=== PATIENT | female | born 1975 | race Caucasian/White ===

== ENCOUNTER 2022-08-27 01:30 | Day surgery (SDC) | payer BC, SELFPAY ==
[2022-08-25 12:30] VITALS: BMI 38.7
--- NOTE | 2022-08-25 12:36 | PC.NURSE ---
Report to the Outpatient Waiting Room, entrance under the green pavilion located off [facility], at time 0830 on date 08/27/22. OR Time: 1030. Time changes happen often and if your time is changed the preop area will call you the afternoon before. - You and your visitor will be asked to self-screen and do not enter if you have any COVID symptoms. - Only one visitor and NO children visitors are allowed at this time. - The patient visitor is requested to leave or wait in car when not with patient due to restrictions. - A mask is required within the hospital. Patients may have clear liquids (water, carbonated beverages, clear teas, apple juice) until 3 hours prior to surgery with a maximum of 20 ounces. - No food from midnight until time of surgery Take the following medications with a SIP of water the morning of surgery: N/A Medications to discontinue per physician: N/A Date to take last dose: N/A Please no make-up, nail nepali, hairspray, perfume, deodorant, or body powder the day of surgery. No jewelry (including any body piercings) or valuables the day of surgery, leave them at home. Please take a shower or bath the night before, or the morning of, surgery with an antibacterial soap. Wear comfortable, loose fitting clothing. - Jewelry must be removed prior to entering the operating room. Rings and piercings that are not removed may be cut off. - The hospital will not accept responsibility for valuables. - Please leave all valuables, including medications, at home the day of surgery. If you are going home after surgery, a licensed clark driver must drive you home. - NO public transportation without another adult. - We recommend that an adult stay with you for 24 hours following discharge. - We also recommend that you do not drive, make important decision, drink alcoholic beverages, or take any drugs that were not prescribed by your health care provider for at least 24 hours after your discharge time. Follow any additional instructions given to you from your surgeon. If you or anyone in your household have experienced Covid symptoms in the past week, please notify your surgeon or the nurse liaison at the phone number below for possible testing. Telephone instructions given to PT - RITA RUSS and asked if any additional questions and then verbalized understanding. Patient advised to call surgeon office or pre surgery nurse liaison [phone] if any additional questions.
--- NOTE | 2022-08-27 07:37 | WPDHPUPDATE1 ---
History and Physical Update Update Date/Time: 08/27/22 07:37 History and Physical has been reviewed, including an updated exam of the patient. There are NO changes in the patient's condition. See office note of 2 weeks ago for indications for procedure. We will be proceeding with hysteroscopic exam, dilation and curettage for a tissue sample, and endometrial ablation. Risks, benefits, and alternatives have been discussed and questions answered. Patient agrees to proceed with procedure.
[2022-08-27] MEDS: LACTATED RINGERS 1,000 ML 30 ML IV CONT (09:15)
[2022-08-27] MEDS: ACETAMINOPHEN 500 MG TABLET 1000 MG PO (09:15)
--- NOTE | 2022-08-27 09:28 | WPDANESEPPF ---
Anes - Initial Pre Proc Eval Procedure: Operation Date: 08/27/22 10:30 Proposed Procedures p Hysteroscopy, Dilation and Curettage, Kortney Endometrial Ablation - Luke Tanner MD Date/Time: 08/27/22 09:28 Surgeon: Luke Tanner MD Pre Op Diagnosis: menometrorrhagia Patient Data Age: 46 Gender: F Height: 1.68 m Weight: 108.86 kg Allergies Allergy/AdvReac Type Severity Reaction Status Date / Time No Known Allergies Allergy Verified 08/25/22 12:30 Home Medications Medication Instructions Recorded Confirmed Type No Home Medications 08/12/22 08/25/22 History Patient hx anesthesia problems: post op nausea/vomiting Family hx anesthesia problems: none Results Review: All pre-operative results and documents have been reviewed as part of the pre-operative evaluation. [facility] Past Medical History Medical History Hypertension no meds Screening mammogram, encounter for Surgical History Surgical History H/O tubal ligation (~2005) History of orthopedic surgery (~1998) right foot broken Family History Family History Father Hypertension Heart disease Grandparent Cerebrovascular accident, Onset Age: 80 paternal grandfather Social History Social History Smoking status: Never smoker Alcohol intake: never Substance use: never Substance use type: does not use Living arrangements: with family Additional living arrangements comments: Engaged 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 Gender identity (if verbalized by the patient): Female Sexual Orientation (if Verbalized by the Patient): Straight or Heterosexual Spiritual care concerns: No Anes - Eval Final PreProcedure Day of Procedure 08/27/22 09:28 Patient weight: obese Heart: regular rate and rhythm Lungs: clear to auscultation Airway: Mallampati scale class II Neurological: alert and oriented Last oral intake: >/= 8 hours ASA classification: II Emergent: no Anesthetic plan: proceed Anesthesia type and monitoring: general GIVS and standard monitoring Results Review: All pre-operative results and documents have been reviewed as part of the pre-operative evaluation. Informed Consent: The patient's anesthetic plan and its attendant risks and benefits were discussed with the patient/family/POA. Questions were solicited and answers provided to the satisfaction of the patient/family/POA.
[2022-08-27 09:37] VITALS: BP 181/83; PULSE 79; RESP 14; TEMP 36.4; O2SAT 100
--- NOTE | 2022-08-27 11:00 | W.PM.PROC2 ---
Procedure Note - Detailed Date of Procedure 08/27/22 Pre-op Diagnosis menometrorrhagia Post-op Diagnosis Same Procedure Performed 1. Hysteroscopy with uterine curettings 2. Endometrial ablation Surgeon Luke Tanner MD Anesthesia MAC Findings Enlarged uterus with thickened endometrial cavity Description of Procedure Patient was prepped and draped in the usual manner for this procedure. Cervix was dilated to allow the hysteroscope replaced, which did reveal slightly thickened endometrial cavity but no specific endometrial abnormalities. Curettings were obtained. Endometrial ablation instrument was placed, cavity assessment performed, instrument activated. At the end of the cycle hysteroscopic exam revealed good destruction throughout. Patient was sent to recovery room in stable condition. Estimated Blood Loss 25 Drains No Packing No Pathology Yes Complications No immediate complications Condition Stable Disposition PACU [facility] Billing Surgery - Charge Forward: Surgery Billing
[2022-08-27 11:04] VITALS: BP 153/84; PULSE 98; RESP 14; O2SAT 98
[2022-08-27 11:30] VITALS: BP 153/88; PULSE 64; RESP 14; O2SAT 100
[2022-08-27 12:00] VITALS: BP 164/82; PULSE 75; RESP 14
== END 2022-08-27 12:09 | disposition home or self-care (01) ==
PROVIDERS: PCP Physician Assistant; Visit Provider Obstetrics & Gynecology
PROC: 0U5B8ZZ Destruction of Endometrium, Via Natural or Artificial Opening Endoscopic (ICD-10-PCS; CPT 58563; principal; 2022-08-27 10:30)
DX: N92.1 Excessive and frequent menstruation with irregular cycle (principal); E66.9 Obesity, unspecified; Z68.41 Body mass index [BMI] 40.0-44.9, adult
CPT/HCPCS: 58563; 88305; A9270; J1885; J2250; J2704; J3010; J7030; J7120

== ENCOUNTER 2023-02-08 13:00 | Outpatient (CLI) | payer BC, SELFPAY ==
[2023-02-08 13:48] LABS: Hematocrit 39.6 % (37.0-47.0); Mean Corpuscular HGB Conc 32.8 g/dl (32-36); Mean Corpuscular Hemoglobin 28.4 pg (26-34); Mean Corpuscular Volume 86.5 fl (80-100); Platelet Count Result 255 k/mm3 (150-375); Red Blood Count 4.58 M/mm3 (4.2-5.4); Red Cell Distribution Width 14.9 % (11.5-14.5); White Blood Count 6.9 K/mm3 (4.5-10.0)
== END 2023-02-08 13:01 | disposition home or self-care (01) ==
LOC: ANHSURGERY 13:07
PROVIDERS: Anesthesiology; PCP Physician Assistant; Visit Provider Obstetrics & Gynecology
DX: N92.1 Excessive and frequent menstruation with irregular cycle (principal); N99.85 Post endometrial ablation syndrome; Z01.818 Encounter for other preprocedural examination
CPT/HCPCS: 36415; 85027; 86850; 86900; 86901

== ENCOUNTER 2023-02-11 00:30 | Day surgery (SDC) | payer BC, SELFPAY ==
[2023-01-28 13:36] VITALS: BMI 37.7
--- NOTE | 2023-01-28 14:00 | PC.NURSE ---
Report to the Outpatient Waiting Room, entrance under the green pavilion located off [facility], at time _0730_ on date _02/11/23_. Planned Procedure Time: _0930 . Time changes happen often and if your time is changed the preop area will call you the afternoon before. - You and your visitor will be asked to self-screen and do not enter if you have any COVID symptoms. - Only one visitor is requested with a max of two and NO children visitors are allowed at this time. - The patient visitor may be requested to leave or wait in car when not with patient due to distancing restrictions. - A mask is optional within the hospital at this time. Patients may have clear liquids (water, carbonated beverages, clear teas, apple juice) until 3 hours prior to surgery(0630) with a maximum of 20 ounces. - No food from midnight until time of surgery - Take the following medications with a SIP of water the morning of surgery: _TAKE NO MEDS THE MORNING OF YOUR SURGERY DO NOT STOP ANY OF YOUR OTHER PRESCRIPTION MEDICATIONS PRIOR TO SURGERY ?EXCEPT THE FOLLOWING Medications to discontinue per physician __NONE_-CONTINUE YOUR VITAMIN AND PROGESTERONE AND IRON TO MANAGE SEVERE ANEMIA UP UNTIL THE DAY BEFORE YOUR SURGERY Date to take last dose___NONE Please no make-up, nail cymraes, hairspray, perfume, deodorant, or body powder the day of surgery. No jewelry (including any body piercings) or valuables the day of surgery, leave them at home. Please take a shower or bath the night before, or the morning of, surgery with an antibacterial soap. Wear comfortable, loose fitting clothing. Children are encouraged to wear pajamas. - Jewelry must be removed prior to entering the operating room. Rings and piercings that are not removed may be cut off. - The hospital will not accept responsibility for valuables. - Please leave all valuables, including medications, at home the day of surgery. If you are going home after surgery, a licensed refrigerated national truck driver must drive you home. - NO public transportation without another adult if you receive anesthesia. - We recommend that an adult stay with you for 24 hours following discharge. - We also recommend that you do not drive, make important decision, drink alcoholic beverages, or take any drugs that were not prescribed by your health care provider for at least 24 hours after your discharge time. Follow any additional instructions given to you from your surgeon. If you or anyone in your household have experienced Covid symptoms in the past week, please notify your surgeon or the nurse liaison at the phone number below for possible testing. Telephone instructions given to __DENA__and asked if any additional questions and then verbalized understanding. Patient advised to call surgeon office or pre surgery nurse liaison [phone] if any additional questions.
[2023-02-11] VITALS (9 sets, daily range): BP systolic 145–177; BP diastolic 65–91; PULSE 57–71; RESP 12–18; TEMP 36.6–37.3; O2SAT 96–100
[2023-02-11] MEDS: ACETAMINOPHEN 500 MG TABLET 1000 MG PO (06:31)
[2023-02-11] MEDS: SCOPOLAMINE 1.5 MG PATCH TRANSDERM (06:31)
[2023-02-11] MEDS: KETOROLAC 15 MG/ML VIAL (*BKC) IV PUSH (06:31)
--- NOTE | 2023-02-11 06:35 | WPDANESEPPF ---
Anes - Initial Pre Proc Eval Procedure: Operation Date: 02/11/23 07:30 Proposed Procedures p Robotic Assisted Total Laparoscopic Hysterectomy, Bilateral Salpingectomy - Luke Tanner MD Date/Time: 02/11/23 06:35 Surgeon: Luke Tanner MD Pre Op Diagnosis: abnormal uterine bleeding Patient Data Age: 47 Gender: F Height: 1.68 m Weight: 106 kg Allergies Allergy/AdvReac Type Severity Reaction Status Date / Time No Known Allergies Allergy Verified 01/28/23 13:56 Home Medications Medication Instructions Recorded Confirmed Type progesterone micronized 200 mg 200 mg PO QHS 30 days #30 caps 01/25/23 02/03/23 Rx capsule (Prometrium) ferrous sulfate 325 mg (65 mg 325 mg PO DAILY 01/28/23 02/03/23 History iron) tablet mv-mn no.97-folic 180 mcg-dha 25 1 tablet PO DAILY 01/28/23 02/03/23 History mg-herb no.293 25 mg chewable tablet (Alive Daily Support ) Patient hx anesthesia problems: post op nausea/vomiting Family hx anesthesia problems: none Results Review: All pre-operative results and documents have been reviewed as part of the pre-operative evaluation. [facility] Past Medical History Medical History Anemia Breast asymmetry Hypertension no meds Screening mammogram, encounter for Surgical History Surgical History H/O tubal ligation (~2005) History of hysteroscopy (08/27/22) hscops D&C/ endometrial ablation History of orthopedic surgery (~1998) right foot broken Family History Family History Father Hypertension Heart disease Grandparent Cerebrovascular accident, Onset Age: 80 paternal grandfather Social History Social History Smoking status: Never smoker Alcohol intake: never Substance use: never Substance use type: does not use Living arrangements: with family Additional living arrangements comments: Engaged Occupation/Education: other 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 Gender identity (if verbalized by the patient): Female Sexual Orientation (if Verbalized by the Patient): Straight or Heterosexual Spiritual care concerns: No Anes - Eval Final PreProcedure Day of Procedure 02/11/23 06:35 Patient weight: obese Heart: regular rate and rhythm Lungs: clear to auscultation Airway: Mallampati scale class II Neurological: alert and oriented Last oral intake: >/= 8 hours ASA classification: II Emergent: no Anesthetic plan: proceed Anesthesia type and monitoring: general ETT and standard monitoring Results Review: All pre-operative results and documents have been reviewed as part of the pre-operative evaluation. Informed Consent: The patient's anesthetic plan and its attendant risks and benefits were discussed with the patient/family/POA. Questions were solicited and answers provided to the satisfaction of the patient/family/POA.
[2023-02-11] MEDS: LACTATED RINGERS 1,000 ML 30 ML IV CONT ×2 (06:53→09:15)
--- NOTE | 2023-02-11 07:19 | WPDHPUPDATE1 ---
History and Physical Update Update Date/Time: 02/11/23 07:19 History and Physical has been reviewed, including an updated exam of the patient. There are NO changes in the patient's condition. Risks, benefits, and alternatives have been discussed and questions answered. Patient agrees to proceed with procedure.
[2023-02-11] MEDS: ceFAZolin 2 GM/D5W 50 ML 2 GM/50 ML BAG IVPB (07:28)
--- NOTE | 2023-02-11 09:00 | W.PM.PROC2 ---
Procedure Note - Detailed Date of Procedure 02/11/23 Pre-op Diagnosis 1. 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 Enlarged uterus Post-op Diagnosis Same Procedure Performed 1. Robotic assisted total laparoscopic hysterectomy with bilateral salpingectomy/ovarian preservation Surgeon Luke Tanner MD Anesthesia General Findings 1. Enlarged globular uterus 2. Distal fallopian tube segments Description of Procedure Patient was prepped and draped in usual manner for this procedure. Attention was placed the vagina where instruments were placed for uterine mobility throughout the case. Abdominal trocar sites were marked and placed under direct visualization. The arms were attached to the DA Evelyn system and instruments were placed again under direct visualization. Findings were as noted above. The utero-ovarian ligaments bilaterally cauterized and cut to separate the ovary from uterus. Distal portions of fallopian tubes were removed at this time as well. The round ligament cauterized and cut bilaterally and the bladder flap was developed. Posterior leaf the broad ligament was also incised to skeletonize the uterine vessels. The uterine vessels then cauterized and cut bilaterally and once this was performed the posterior cul-de-sac was entered and circumferentially the cervix was separate from the vagina, with the uterus then delivered into the vagina with out difficulty. Cuff was closed using V lock suture from the right angle to the midline and the left angle to the midline with good approximation hemostasis noted. Irrigation was undertaken and there was no bleeding. Shobha was placed empirically over all of the raw edges. Gas was allowed to escape trocars removed incisions approximated using 4-0 Monocryl. Patient was then sent to recovery room in stable condition. Estimated Blood Loss 100 Drains No Packing No Pathology Yes Complications No immediate complications Condition Stable Disposition PACU [facility] Billing Surgery - Charge Forward: Surgery Billing
[2023-02-11] MEDS: fentaNYL CITRATE INJ (*CRX) 100 MCG/2 ML VIAL 25 MCG IV PUSH ×3 (09:15→09:45)
--- NOTE | 2023-02-11 10:15 | PC.NURSE ---
This patient, Anita Bone, was received from PACU per bed on 02/11/23 at 1015. Patient/family oriented to unit policies and routines.
[2023-02-11] MEDS: DEXTROSE 5%/0.45% SOD CHL 1,000 ML 125 ML IV CONT (10:54)
[2023-02-11] MEDS: KETOROLAC 30 MG/ML VIAL (*BKC) IV PUSH (10:54)
[2023-02-11] MEDS: HYDROcodone/acetaminophen (*CRX) 5-325 MG TABLET 1 TAB PO (14:43)
[2023-02-11] MEDS: ONDANSETRON INJ 4 MG/2 ML VIAL IV PUSH (18:54)
[2023-02-12 00:25] VITALS: BP 159/73; PULSE 63; RESP 16; TEMP 37.5
[2023-02-12] MEDS: HYDROcodone/acetaminophen (*CRX) 5-325 MG TABLET 1 TAB PO ×4 (00:27→11:21)
[2023-02-12] MEDS: IBUPROFEN 600 MG TABLET PO ×2 (00:27→07:35)
[2023-02-12 04:20] VITALS: BP 162/72; PULSE 62; RESP 18; TEMP 36.9
[2023-02-12 05:06] LABS: Basophils Percent Auto 0.3 % (0.2-1.2); Hematocrit 38.3 % (37.0-47.0); Hemoglobin 12.5 g/dL (12.0-15.0); Immature Granulocyte Absolute 0.06 K/mm3 (0.00-0.031); Immature Granulocyte Percent A 0.5 % (0-0.5); Lymphocytes Percent Auto 14.5 % (18.3-44.2); Mean Corpuscular HGB Conc 32.6 g/dl (32-36); Mean Corpuscular Hemoglobin 28.2 pg (26-34); Mean Corpuscular Volume 86.5 fl (80-100); Mean Platelet Volume 10.5 fl (7.4-10.4); Monocytes Absolute Auto 0.6 K/mm3 (0.1-0.6); Monocytes Percent Auto 5.2 % (2.6-8.5); Neutrophils Absolute Auto 9.3 K/mm3 (1.3-6.7); Neutrophils Percent Auto 79.5 % (45.5-73.1); Platelet Count Result 263 k/mm3 (150-375); Red Blood Count 4.43 M/mm3 (4.2-5.4); White Blood Count 11.8 K/mm3 (4.5-10.0)
[2023-02-12] MEDS: SIMETHICONE 80 MG TAB.CHEW PO (07:35)
[2023-02-12 08:30] VITALS: BP 150/74; PULSE 74; RESP 18; TEMP 37.1; O2SAT 99
--- NOTE | 2023-02-12 10:06 | P.PNAN_ITS ---
Anes - Prog Note Post-Op Date/Time: 02/12/23 10:06 Cardiovascular status: normal Respiratory status: normal Airway patency: baseline Mental status: baseline Post-Op hydration status: normal Vital Signs: Last Vital Signs Temp 98.8 F 02/12/23 08:30 Pulse 74 02/12/23 08:30 Resp 18 02/12/23 08:30 BP 150/74 H 02/12/23 08:30 Pulse Ox 99 02/12/23 08:30 O2 Del Method Room Air 02/11/23 16:50 O2 Flow Rate 8 02/11/23 09:30 Pain Score (VAS): 0 I/O: Intake & Output 02/11/23 02/12/23 02/12/23 23:59 07:59 15:59 Intake Total 1000 300 480 Output Total 500 Balance 1000 -200 480 Laboratory Tests 02/12/23 04:20 02/12/23 04:20 WBC 11.8 H RBC 4.43 Hgb 12.5 Hct 38.3 MCV 86.5 MCH 28.2 MCHC 32.6 RDW 15.0 H Plt Count 263 MPV 10.5 H Immature Gran % (Auto) 0.5 Neut % (Auto) 79.5 H Lymph % (Auto) 14.5 L [place] % (Auto) 5.2 Eos % (Auto) 0.0 Baso % (Auto) 0.3 Lymph # (Auto) 1.70 [place] # (Auto) 0.6 Eos # (Auto) 0.0 Baso # (Auto) 0.0 Abs Immat Gran (auto) 0.06 H Absolute Neuts (auto) 9.3 H Absolute Nucleated RBC 0.0 Nucleated RBC % 0.0 Post-procedural complaints: none Patient Feedback: Patient satisfied with anesthetic care.
== END 2023-02-12 11:22 | disposition home or self-care (01) ==
LOC: ANHSURGERY 07:44 → ANHOB2 02-12 10:08
PROVIDERS: PCP Physician Assistant; Visit Provider Obstetrics & Gynecology
PROC: (CPT 58571; principal; 2023-02-11 07:30)
DX: N92.1 Excessive and frequent menstruation with irregular cycle (principal); N99.85 Post endometrial ablation syndrome; N88.8 Other specified noninflammatory disorders of cervix uteri; N72 Inflammatory disease of cervix uteri; D25.1 Intramural leiomyoma of uterus; N83.8 Other noninflammatory disorders of ovary, fallopian tube and broad ligament; D64.9 Anemia, unspecified; E66.9 Obesity, unspecified; Z68.41 Body mass index [BMI] 40.0-44.9, adult
CPT/HCPCS: 58571; S2900; 36415; 85025; 88307; 99199; A9270; J0690; J1100; J1170; J1885; J2250; J2405; J2704; J2710; J3010; J7120

== ENCOUNTER 2025-06-30 17:47 | Emergency (ER) | payer OTHER, SELFPAY ==
--- NOTE | ~2025-06-30 | XR_ITS ---
EXAM: XR knee RT 3V DATE: 06/30/2025 19:03 HISTORY: pain with injury . COMPARISON: None. FINDINGS: Decreased mineralization. No fracture or dislocation. No lytic or blastic lesion. Mild tri compartmental right knee osteoarthritis. Quadriceps enthesopathy. Small right knee joint effusion No erosion or periosteal change. Soft tissues within normal limits. IMPRESSION: No acute osseous finding in the right knee. Reviewed, dictated and finalized at location K.
[2025-06-30 18:27] VITALS: BP 137/80; PULSE 80; RESP 16; TEMP 37.1; O2SAT 100
--- NOTE | 2025-06-30 18:38 | ED.LOWEXIN ---
HPI - Extremity Injury (Lower) General Chief Complaint: Extremity Injury, Lower Stated Complaint: right knee popped patient presents to the [facility] accompanied by family with complaints of right knee pain that began about 6 days ago. Patient noted she has been taking naproxen over the last few days with some relief of symptoms. Patient reports she was trying to run quickly across the street today and heard a pop and started having more pain Especially in the outside of right knee. no brace or support use to help with knee pain. Denies numbness or tingling down the leg or into foot. Related Data Home Medications ?Medication ?Instructions ?Recorded ?Confirmed ?Last Taken ?Type mv-mn no.97-folic 180 mcg-dha 25 1 tablet PO DAILY 01/28/23 06/30/25 02/10/23 09:00 History mg-herb no.293 25 mg chewable tablet (Alive Daily Support ) lisinopril 20 tablet 06/30/25 Unknown History mg-hydrochlorothiazide 25 mg tablet phentermine 37.5 mg tablet mg 06/30/25 Unknown History Allergies Allergy/AdvReac Type Severity Reaction Status Date / Time No Known Allergies Allergy Verified 06/30/25 18:26 Review of Systems Constitutional: Constitutional: Reports as per HPI and Denies weakness Eyes: Eyes: Reports no additional eye complaints ENT: Reports system reviewed and no additional complaints, except as documented Cardiovascular: Cardiovascular: Reports no additional cardiovascular complaints Respiratory: Respiratory: Reports no additional respiratory complaints Gastrointestinal: Gastrointestinal: Reports no additional gastrointestinal complaints Genitourinary: Genitourinary: Reports no additional female genitourinary complaints Musculoskeletal: Musculoskeletal: Reports as per HPI, Reports arthralgias, Denies joint swelling and Denies muscle cramps Integumentary/Breasts: Skin/Breast: Reports as per HPI, Denies pruritus, Denies rash and Denies skin ulcer Neurologic: Reports as per HPI, Denies numbness and Denies weakness Psychiatric: Psychiatric: Reports no additional psychiatric complaints Endocrine: Endocrine: Reports no additional endocrine complaints Hematologic/Lymphatic: Hematologic/Lymphatic: Reports no additional hematologic/lymphatic complaints Allergic/Immunologic: Allergic/Immunologic: Reports no additional allergic/immunologic complaints [facility] Past Medical History Medical History Anemia Breast asymmetry Hypertension no meds Screening mammogram, encounter for Surgical History Surgical History H/O tubal ligation (~2005) History of hysteroscopy (08/27/22) hscops D&C/ endometrial ablation History of orthopedic surgery (~1998) right foot broken History of robot-assisted laparoscopic hysterectomy (02/11/23) Robotic assisted total laparoscopic hysterectomy with bilateral salpingectomy/ovarian preservation Family History Family History Father Hypertension Heart disease Grandparent Cerebrovascular accident, Onset Age: 80 paternal grandfather Social History Social History Smoking status: Never smoker Alcohol intake: never Substance use: never Substance use type: does not use Living arrangements: with family Additional living arrangements comments: Engaged Occupation/Education: other 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 Gender identity (if verbalized by the patient): Female Sexual Orientation (if Verbalized by the Patient): Straight or Heterosexual Spiritual care concerns: No Exam Const: General: healthy appearing and no acute distress Nutritional Appearance: well nourished Orientation/consciousness: patient oriented x3 Limitations: physical limitations ( Limited by pain) Resp: Effort & Inspection: normal respiratory effort Auscultation: clear to auscultation bilaterally Cardio: Rate: regular rate Rhythm: regular rhythm Skin: General skin exam: normal color Rashes: no rashes Wounds: no wounds Neuro: General: patient oriented x3 and moves all extremities Speech: normal speech Gait exam (Neuro): gait abnormal ( limping, limited by pain) Extrem: Right lower extremity: knee Details: normal to inspection, abnormal ROM and knee ligament exam normal; inspection normal, no tenderness, no swelling, ROM abnormal, normal knee ligament exam, no abrasions, no lacerations, no ecchymosis, no crepitus, no foreign bodies, no penetrating wound, no deformity and no unusual warmth Psych: Mental Status: mental status grossly normal Affect: normal affect Attitude: cooperative Course Course Level of Care: Express Care Visit Vital Signs Vital signs: Vital Signs Temperature 98.7 F 06/30/25 18:27 Pulse Rate 80 06/30/25 18:27 Respiratory Rate 16 06/30/25 18:27 Blood Pressure 137/80 06/30/25 18:27 Pulse Oximetry 100 06/30/25 18:27 Temperature 98.7 F 06/30/25 18:27 Pulse Rate 80 06/30/25 18:27 Respiratory Rate 16 06/30/25 18:27 Blood Pressure 137/80 06/30/25 18:27 Pulse Oximetry 100 06/30/25 18:27 MDM - Extremity Injury (Lower) MDM Narrative Medical decision making narrative: x-rays ordered. Discharge instructions reviewed with patient, as well as provided in writing per nursing staff. The instructions also include specific and strict return/GO TO THE ER as well as f/u information. All questions have been answered, and the patient deny any further questions with discharge and discharge plan. Differential Diagnosis Differential diagnosis: Likely acute internal derangement of knee and other ( Osteoarthritis, knee sprain) Medical Records Attestation: I reviewed the patient's medical records. Imaging Data Attestation: I personally reviewed and interpreted this imaging study as follows: My impression: no acute fracture Radiologist's impression: IMPRESSION: No acute osseous finding in the right knee. Reviewed, dictated and finalized at location K. Discharge Plan Discharge Clinical Impression: Right knee sprain Patient Disposition: Home Condition: Stable Instructions: Antibiotic Form, Knee Sprain (ED), Knee Pain (ED) Additional Instructions: Xray showed no fracture or abnormality, noted some minimal arthritis Minimize activities that aggravate the condition The RICE protocol. Follow the RICE protocol as soon as possible after your injury: Rest your knee by not walking on it. Ice should be immediately applied to keep the swelling down. It can be used for 20 to 30 minutes, three or four times daily. Do not apply ice directly to your skin. Compression dressings, bandages or joseph-wraps will immobilize and support your injured knee. Elevate your leg above the level of your heart as often as possible. Medication: Nonsteroidal anti-inflammatory drugs (NSAIDs) such as ibuprofen and naproxen can help control pain and swelling. Because they improve function by both reducing swelling and controlling pain, they are a better option for mild sprains than narcotic pain medicines. Please schedule a follow-up visit with your personal physician for further evaluation and treatment within 1week OR If your symptoms persist, change or worsen significantly before you can contact your personal physician then please, without delay, go to the emergency department for further evaluation. Patient Language: Vincentian Prescriptions: New methylprednisolone [Medrol (Satish)] 4 mg tablets,dose pack See Rx Instructions .ROUTE .COMPLEX Qty: 21 0RF Rx Instructions: for 6 days No Action phentermine 37.5 mg tablet lisinopril-hydrochlorothiazide 20-25 mg tablet Alive Daily Support 180 mcg-25 mg- 25 mg Tablet,Chewable 1 tablet PO DAILY Follow-up/Referrals: Harms,Gaston Pickens M.D. [Primary Care Provider] - Time of Disposition: 19:35
== END 2025-06-30 19:42 | disposition home or self-care (01) ==
PROVIDERS: Emergency Provider Nurse Practitioner Family; PCP Family Medicine
DX: S83.91XA Sprain of unspecified site of right knee, initial encounter (principal); X50.0XXA Overexertion from strenuous movement or load, initial encounter; Y93.02 Activity, running
CPT/HCPCS: 73562; 99213; G0463